=== PATIENT | female | born 1945 | race Caucasian/White ===

== ENCOUNTER 2017-06-03 09:26 | Day surgery (SDC) | payer MEDICARE, OTHER ==
[~2017-06-03 09:26] MED LIST: Bupivacaine 0.5% 50 ML MDV ONE; Lidocaine 0.5% 50 ML SDV ONE; Midazolam 1 MG/ML 2 ML SDV ONE; Povidone-Iodine 10% Soln 118.25 ML Bottle ONE; Propofol 200 MG/20 ML SDV ONE; fentaNYL 100 MCG/2 ML SDV ONE
[2017-06-03] MEDS ORDERED: ceFAZolin 2 GM in Premix Bag 1 BAG IV ONE (10:15)
[2017-06-03] MEDS ORDERED: Lactated Ringers 1,000 ML IV SCH (10:15)
--- NOTE | 2017-06-03 11:46 | OR ---
DATE OF PROCEDURE: 06/03/2017 PREOPERATIVE DIAGNOSIS: Right long finger trigger finger. POSTOPERATIVE DIAGNOSIS: Right long finger trigger finger. PROCEDURE: Right long finger trigger finger release. ANESTHESIA: Abiquiu block plus conscious sedation. FLUIDS: Lactated Ringer's solution. ESTIMATED BLOOD LOSS: Less than 10 mL. COMPLICATIONS: None. SPECIMEN: None. DISCHARGE DISPOSITION: Stable to PACU. HISTORY AND INDICATIONS FOR THE PROCEDURE: The patient was seen preoperatively in the clinic. She has had triggering of her long finger for quite some time. Risks and benefits of the procedure were explained to the patient. Informed consent was obtained. DETAILS OF PROCEDURE: The patient was seen preoperatively by myself and the Anesthesia staff in the preoperative holding area, where the operative site was marked. She was brought to the operative suite by Anesthesia staff, where conscious sedation plus a Malinda block was administered to the right upper extremity. The right upper extremity was then prepped and draped in a sterile manner. Time-out was called identifying the correct patient, the correct procedure, the correct site, and antibiotics had begun within appropriate period of time. An incision was made directly over the A1 kurt of the long finger extending approximately 1.5 cm. I used self-retaining retractors. I did use a needle-tip cautery unit because there was significant venous tourniquet present. I then cleared away the subcutaneous fat using the self-retaining retractor and then identified the A1 kurt. I then incised the A1 kurt longitudinally with a 15 blade and then went proximally and distally to make sure the entire kurt had been released. After this had been accomplished, I used a Ragnell to exteriorize the flexor tendon out of the wound and ensure that it was loose. After this had been accomplished, I then copiously irrigated with Betadine infused irrigation. I injected local anesthetic and then closed with 3-0 nylon interrupted mattress sutures, followed by Betadine-soaked Adaptic, followed by sterile dressing and Nick wrap. After 20 minutes, tourniquet was let down, and the patient was taken to the PACU in stable condition. Talon Wild DO /[id number]
== END 2017-06-03 12:55 | disposition home or self-care (01) ==
LOC: JP.SDS 09:26
PROVIDERS: ATTEND Orthopaedic Surgery
DX: M65.331 Trigger finger, right middle finger (principal); Z79.899 Other long term (current) drug therapy
CPT/HCPCS: 26055; J0690; J2250; J2704; J3010; J7120